=== PATIENT | female | born 1945 | race Caucasian/White ===

== ENCOUNTER 2018-02-02 14:05 | Inpatient (IN) | payer MEDICARE, OTHER ==
[~2018-02-02] VITALS: Ht 160 cm; Wt 58.6 kg
[~2018-02-02 14:05] MED LIST: ALPR.5 PO; ASPI81CH PO; ASPI81EC PO; Antivert12.5 MG; CEPH500 PO; CODACE30 PO; ELIQUIS5 MG PO; FURO20 PO; GABA400 PO; HYDACE5 PO; HYDR-86 PO; HYDR1TAB94 PO; IBUP800 PO; LASIX; LEVOTHYROXINE PO; LISI20 PO; MECL12.5 PO; MECL25 PO; METO25ER PO; Norco 5-325 Ta1 EACH PO; OMEP20ER PO; PROP10 PO; SIMV20 PO; TRIM250 PO; WARF5 PO; Zofran4 MG PO
[2018-02-02 14:58] LABS: BASOPHILS ABSOLUTE AUTO 0.02 K/mm3 (0.00-0.23); BASOPHILS PERCENT AUTO 0 % (0-2); EOSINOPHILS ABSOLUTE AUTO 0.17 K/mm3 (0.00-0.68); EOSINOPHILS PERCENT AUTO 3 % (0-6); Hematocrit 42.9 % (33.0-51.0); Hemoglobin 13.9 g/dL (11.5-16.0); IMMATURE GRAN ABSOLUTE AUTO 0.04 K/mm3 (0.00-0.10); IMMATURE GRAN PERCENT AUTO 1 % (0-1); LYMPHOCYTES ABSOLUTE AUTO 1.11 K/mm3 (0.84-5.20); LYMPHOCYTES PERCENT AUTO 17 % (21-46); MONOCYTES ABSOLUTE AUTO 0.93 K/mm3 (0.16-1.47); MONOCYTES PERCENT AUTO 14 % (4-13); Mean Corpuscular HGB 35.4 pg (26.0-34.0); Mean Corpuscular HGB Conc 32.4 g/dL (31.5-36.5); Mean Corpuscular Volume 109 fL (80-100); Mean Platelet Volume 10.5 fL (9.1-12.4); NEUTROPHILS ABSOLUTE AUTO 4.32 K/mm3 (1.96-9.15); NEUTROPHILS PERCENT AUTO 66 % (41-73); Platelet Count 314 K/mm3 (150-400); RDW Coefficient Variation 17.6 % (11.7-14.2); RDW Standard Deviation 71.1 fL (35.1-46.3); Red Blood Cell Count 3.93 M/mm3 (3.80-5.20); White Blood Cell Count 6.59 K/mm3 (4.00-11.30)
[2018-02-02 15:00] LABS: Chloride (POC) 112 mmol/L (98-108); Creatinine (POC) 0.5 mg/dL (0.6-1.0); Glucose (ISTAT POC) 79 mg/dL (70-99); Hemoglobin (POC) 15.3 g/dL (12.0-16.0); Potassium (POC) 3.4 mmol/L (3.5-5.5); Sodium (POC) 146 mmol/L (135-148); Total CO2 (POC) 23 mmol/L (21-32)
[2018-02-02 15:25] LABS: Alanine Aminotransfer (ALT/SGP 19 U/L (12-78); Albumin, Blood 2.6 g/dL (3.4-5.0); Albumin/Globulin Ratio 0.6 (0.8-1.8); Alk Phos 52 U/L (50-136); Anion Gap 13 mmol/L (6-16); Aspartate Aminotrans (AST/SGOT 27 U/L (12-37); Blood Urea Nitrogen 27 mg/dL (8-24); Bun/Creatinine Ratio 48.6 (12.0-20.0); CO2, Blood 20 mmol/L (21-32); CPK Creatine Kinase 89 U/L (26-193); Calcium, Blood 9.1 mg/dL (8.5-10.1); Chloride, Blood 112 mmol/L (98-108); Creatine Kinase MB 1.8 ng/mL (0.0-3.6); Creatinine, Blood 0.56 mg/dL (0.40-1.00); Ethanol (Alcohol), Blood, Med <3 mg/dL; Globulin, Blood 4.3 g/dL (2.2-4.0); Glomerular Filtration Rate >60 (60-); Glucose, Blood 72 mg/dL (70-99); Magnesium, Blood 2.2 mg/dL (1.6-2.4); Potassium, Blood 3.5 mmol/L (3.5-5.5); Sodium, Blood 145 mmol/L (136-145); Total Protein, Blood 6.9 g/dL (6.4-8.2)
[2018-02-02 15:27] LABS: Prothrombin Time Results 10.4 Sec (9.7-11.5)
[2018-02-02 16:16] LABS: Troponin I <0.015 ng/mL (0.000-0.040)
[2018-02-03 04:09] LABS: Hematocrit 36.3 % (33.0-51.0); Hemoglobin 12.2 g/dL (11.5-16.0); Mean Corpuscular HGB 35.7 pg (26.0-34.0); Mean Corpuscular HGB Conc 33.6 g/dL (31.5-36.5); Mean Corpuscular Volume 106 fL (80-100); Mean Platelet Volume 10.4 fL (9.1-12.4); Platelet Count 276 K/mm3 (150-400); RDW Coefficient Variation 17.2 % (11.7-14.2); RDW Standard Deviation 67.4 fL (35.1-46.3); Red Blood Cell Count 3.42 M/mm3 (3.80-5.20); White Blood Cell Count 5.63 K/mm3 (4.00-11.30)
[2018-02-03 04:34] LABS: Anion Gap 10 mmol/L (6-16); Blood Urea Nitrogen 21 mg/dL (8-24); Bun/Creatinine Ratio 34.1 (12.0-20.0); CO2, Blood 24 mmol/L (21-32); Calcium, Blood 8.4 mg/dL (8.5-10.1); Chloride, Blood 107 mmol/L (98-108); Creatinine, Blood 0.62 mg/dL (0.40-1.00); Glomerular Filtration Rate >60 (60-); Glucose, Blood 86 mg/dL (70-99); Potassium, Blood 2.6 mmol/L (3.5-5.5); Sodium, Blood 141 mmol/L (136-145)
[2018-02-03 16:17] LABS: Source, Urine Clean Catch
[2018-02-03 16:28] LABS: Bilirubin, Urine Neg (Neg); Blood, Urine 1+ (Neg); Glucose Qualitative, Urine Neg (Neg); Ketones, Urine 1+ (Neg); Leukocyte Esterase, Urine 3+ (Neg); Nitrite, Urine Pos (Neg); Protein, Urine 1+ (Neg); Urobilinogen, Urine 2+ (Normal)
[2018-02-03 16:51] LABS: Appearance, Urine Hazy (Clear); Color, Urine Yellow (P-Yellow)
[2018-02-03 16:52] LABS: Bacteria Many /hpf; Squamous Epithelial Cells Few /hpf (Few); White Blood Cells, Urine 25-50 /hpf (0-5)
[2018-02-04 06:25] LABS: Albumin, Blood 1.9 g/dL (3.4-5.0); Anion Gap 6 mmol/L (6-16); Blood Urea Nitrogen 19 mg/dL (8-24); Bun/Creatinine Ratio 27.3 (12.0-20.0); CO2, Blood 23 mmol/L (21-32); Calcium, Blood 8.2 mg/dL (8.5-10.1); Chloride, Blood 112 mmol/L (98-108); Glomerular Filtration Rate >60 (60-); Glucose, Blood 86 mg/dL (70-99); Magnesium, Blood 1.8 mg/dL (1.6-2.4); Phosphorus, Blood 3.3 mg/dL (2.5-4.9); Sodium, Blood 141 mmol/L (136-145)
[2018-02-05 04:30] LABS: BASOPHILS ABSOLUTE AUTO 0.01 K/mm3 (0.00-0.23); BASOPHILS PERCENT AUTO 0 % (0-2); EOSINOPHILS ABSOLUTE AUTO 0.06 K/mm3 (0.00-0.68); EOSINOPHILS PERCENT AUTO 1 % (0-6); Hematocrit 32.6 % (33.0-51.0); Hemoglobin 10.8 g/dL (11.5-16.0); IMMATURE GRAN ABSOLUTE AUTO 0.05 K/mm3 (0.00-0.10); IMMATURE GRAN PERCENT AUTO 1 % (0-1); LYMPHOCYTES ABSOLUTE AUTO 0.72 K/mm3 (0.84-5.20); LYMPHOCYTES PERCENT AUTO 9 % (21-46); MONOCYTES ABSOLUTE AUTO 0.93 K/mm3 (0.16-1.47); MONOCYTES PERCENT AUTO 12 % (4-13); Mean Corpuscular HGB 35.9 pg (26.0-34.0); Mean Corpuscular HGB Conc 33.1 g/dL (31.5-36.5); Mean Corpuscular Volume 108 fL (80-100); Mean Platelet Volume 10.1 fL (9.1-12.4); NEUTROPHILS ABSOLUTE AUTO 6.05 K/mm3 (1.96-9.15); NEUTROPHILS PERCENT AUTO 77 % (41-73); Platelet Count 244 K/mm3 (150-400); RDW Coefficient Variation 17.2 % (11.7-14.2); RDW Standard Deviation 69.3 fL (35.1-46.3); Red Blood Cell Count 3.01 M/mm3 (3.80-5.20); White Blood Cell Count 7.82 K/mm3 (4.00-11.30)
[2018-02-05 04:47] LABS: Anion Gap 8 mmol/L (6-16); Blood Urea Nitrogen 9 mg/dL (8-24); Bun/Creatinine Ratio 17.7 (12.0-20.0); CO2, Blood 24 mmol/L (21-32); Calcium, Blood 7.9 mg/dL (8.5-10.1); Chloride, Blood 109 mmol/L (98-108); Creatinine, Blood 0.51 mg/dL (0.40-1.00); Glomerular Filtration Rate >60 (60-); Glucose, Blood 129 mg/dL (70-99); Potassium, Blood 3.7 mmol/L (3.5-5.5); Sodium, Blood 141 mmol/L (136-145)
== END 2018-02-11 11:02 | DRG 483 ==
LOC: ER 14:05 → SURS 18:21 → ICUE 02-04 21:27 → SURS 02-04 22:43
PROVIDERS: Emergency Medicine; Internal Medicine; Orthopaedic Surgery
PROC: 0RRJ0J6 Replacement of Right Shoulder Joint with Synthetic Substitute, Humeral Surface, Open Approach (ICD-10-PCS; principal; 2018-02-04 14:30)
DX: M84.421A Pathological fracture, right humerus, initial encounter for fracture (principal); M84.433A Pathological fracture, right radius, initial encounter for fracture; F10.20 Alcohol dependence, uncomplicated; E86.0 Dehydration; Z86.718 Personal history of other venous thrombosis and embolism; I10 Essential (primary) hypertension; J44.9 Chronic obstructive pulmonary disease, unspecified; E87.6 Hypokalemia; M84.431A Pathological fracture, right ulna, initial encounter for fracture; R82.71 Bacteriuria; B96.20 Unspecified Escherichia coli [E. coli] as the cause of diseases classified elsewhere
CPT/HCPCS: 29125; 36415; 71045; 73030; 73070; 73110; 73200; 80047; 80048; 80053; 80069; 81001; 82550; 82553; 83735; 84443; 84484; 85014; 85025; 85027; 85610; 87077; 87086; 87186; 88305; 88311; 88341; 88342; 93005; 93010; 96365; 96375; 96376; 97110; 97116; 97162; 97166; 97530; 97535; 99285; C1713; C1751; C1776; G0008; G0480; G8978; G8979; G8987; G8988; J0171; J0330; J0690; J0696; J1650; J1885; J2001; J2405; J3010; J3411; J3475; J3480; J7030; J7042; J7050; J7120; L3917; Q0163; Q2038

== ENCOUNTER 2021-07-20 18:14 | Emergency (ER) | payer BC, OTHER ==
[~2021-07-20] VITALS: Ht 160 cm; Wt 45.4 kg
[~2021-07-20 18:14] MED LIST changes: +GABA100
[2021-07-20 20:00] LABS: BASOPHILS ABSOLUTE AUTO 0.03 K/mm3 (0.00-0.23); BASOPHILS PERCENT AUTO 0 % (0-2); EOSINOPHILS ABSOLUTE AUTO 0.13 K/mm3 (0.00-0.68); EOSINOPHILS PERCENT AUTO 2 % (0-6); Hematocrit 33.7 % (33.0-51.0); Hemoglobin 11.5 g/dL (11.5-16.0); IMMATURE GRAN ABSOLUTE AUTO 0.06 K/mm3 (0.00-0.10); IMMATURE GRAN PERCENT AUTO 1 % (0-1); LYMPHOCYTES ABSOLUTE AUTO 1.49 K/mm3 (0.84-5.20); LYMPHOCYTES PERCENT AUTO 20 % (21-46); MONOCYTES ABSOLUTE AUTO 0.41 K/mm3 (0.16-1.47); MONOCYTES PERCENT AUTO 5 % (4-13); Mean Corpuscular HGB 35.1 pg (26.0-34.0); Mean Corpuscular HGB Conc 34.1 g/dL (31.5-36.5); Mean Corpuscular Volume 103 fL (80-100); Mean Platelet Volume 9.2 fL (9.1-12.4); NEUTROPHILS ABSOLUTE AUTO 5.42 K/mm3 (1.96-9.15); NEUTROPHILS PERCENT AUTO 72 % (41-73); Platelet Count 393 K/mm3 (150-400); RDW Coefficient Variation 18.2 % (11.7-14.2); RDW Standard Deviation 67.7 fL (35.1-46.3); Red Blood Cell Count 3.28 M/mm3 (3.80-5.20); White Blood Cell Count 7.54 K/mm3 (4.00-11.30)
[2021-07-20 20:22] LABS: Anion Gap 9 mmol/L (6-16); Blood Urea Nitrogen 7 mg/dL (8-24); Bun/Creatinine Ratio 10.4 (12.0-20.0); CO2, Blood 27 mmol/L (21-32); Chloride, Blood 98 mmol/L (98-108); Creatinine, Blood 0.67 mg/dL (0.40-1.00); Glomerular Filtration Rate >60 (60-); Glucose, Blood 84 mg/dL (70-99); Potassium, Blood 2.8 mmol/L (3.5-5.5); Sodium, Blood 134 mmol/L (136-145)
[2021-07-20 23:26] LABS: SARS-Cov-2 (COVID-19) PCR, MMC NEGATIVE (NEGATIVE)
== END 2021-07-20 23:31 ==
LOC: ER 18:14
PROVIDERS: Emergency Medicine
DX: K12.2 Cellulitis and abscess of mouth (principal); M27.2 Inflammatory conditions of jaws; Z88.2 Allergy status to sulfonamides; Z87.891 Personal history of nicotine dependence; Z20.822 Contact with and (suspected) exposure to COVID-19
CPT/HCPCS: 36415; 70487; 80048; 83605; 85025; 87040; 96365-59; 96367-59; 99285-25; A9270; J2543; J3370; Q9967; U0004

== ENCOUNTER 2021-09-23 11:46 | Emergency (ER) | payer MEDICARE, OTHER ==
[~2021-09-23] VITALS: Ht 157.5 cm; Wt 49.9 kg
[~2021-09-23 11:46] MED LIST changes: -GABA100; +GABA100 PO
[2021-09-23] MEDS ORDERED: OMEP20ER PO (12:01)
[2021-09-23] MEDS ORDERED: OXYC5 PO (12:01)
[2021-09-23] MEDS ORDERED: Amlodipine Bes2.5 MG PO (12:01)
[2021-09-23] MEDS ORDERED: PERIDEX15 ML MM (12:02)
[2021-09-23] MEDS ORDERED: PROC5 PO (12:02)
[2021-09-23] MEDS ORDERED: ACET500 PO (12:03)
[2021-09-23 13:24] LABS: BASOPHILS ABSOLUTE AUTO 0.04 K/mm3 (0.00-0.23); BASOPHILS PERCENT AUTO 1 % (0-2); EOSINOPHILS ABSOLUTE AUTO 0.07 K/mm3 (0.00-0.68); EOSINOPHILS PERCENT AUTO 1 % (0-6); Hematocrit 31.9 % (33.0-51.0); Hemoglobin 9.7 g/dL (11.5-16.0); IMMATURE GRAN ABSOLUTE AUTO 0.07 K/mm3 (0.00-0.10); IMMATURE GRAN PERCENT AUTO 1 % (0-1); LYMPHOCYTES ABSOLUTE AUTO 1.58 K/mm3 (0.84-5.20); LYMPHOCYTES PERCENT AUTO 19 % (21-46); MONOCYTES ABSOLUTE AUTO 1.09 K/mm3 (0.16-1.47); MONOCYTES PERCENT AUTO 13 % (4-13); Mean Corpuscular HGB 31.3 pg (26.0-34.0); Mean Corpuscular HGB Conc 30.4 g/dL (31.5-36.5); Mean Corpuscular Volume 103 fL (80-100); Mean Platelet Volume 10.1 fL (9.1-12.4); NEUTROPHILS ABSOLUTE AUTO 5.41 K/mm3 (1.96-9.15); NEUTROPHILS PERCENT AUTO 66 % (41-73); Platelet Count 567 K/mm3 (150-400); RDW Coefficient Variation 20.9 % (11.7-14.2); RDW Standard Deviation 79.6 fL (35.1-46.3); White Blood Cell Count 8.26 K/mm3 (4.00-11.30)
[2021-09-23 13:41] LABS: International Normalized Ratio 0.96; Prothrombin Time Results 10.1 Sec (9.7-11.5)
[2021-09-23 13:46] LABS: Alanine Aminotransfer (ALT/SGP 19 U/L (12-78); Albumin, Blood 2.4 g/dL (3.4-5.0); Albumin/Globulin Ratio 0.5 (0.8-1.8); Alk Phos 79 U/L (50-136); Anion Gap 5 mmol/L (6-16); Aspartate Aminotrans (AST/SGOT 23 U/L (12-37); Bilirubin, Direct 0.1 mg/dL (0.0-0.3); Bilirubin, Indirect 0.2 mg/dL (0.1-0.7); Bilirubin, Total 0.3 mg/dL (0.1-1.0); Blood Urea Nitrogen 9 mg/dL (8-24); Bun/Creatinine Ratio 20.2 (12.0-20.0); CO2, Blood 33 mmol/L (21-32); Calcium, Blood 9.7 mg/dL (8.5-10.1); Chloride, Blood 104 mmol/L (98-108); Creatinine, Blood 0.45 mg/dL (0.40-1.00); Globulin, Blood 4.7 g/dL (2.2-4.0); Glomerular Filtration Rate >60 (60-); Glucose, Blood 115 mg/dL (70-99); Magnesium, Blood 2.5 mg/dL (1.6-2.4); Potassium, Blood 3.3 mmol/L (3.5-5.5); Sodium, Blood 142 mmol/L (136-145); Total Protein, Blood 7.1 g/dL (6.4-8.2)
== END 2021-09-23 17:01 | disposition home or self-care (01) ==
LOC: ER 11:46
PROVIDERS: Student in an Organized Health Care Education/Training Program
DX: K94.23 Gastrostomy malfunction (principal); E87.6 Hypokalemia; R10.12 Left upper quadrant pain; Z88.2 Allergy status to sulfonamides; Z79.899 Other long term (current) drug therapy
CPT/HCPCS: 36415; 74177; 80048; 80076; 83690; 83735; 85025; 85610; 85730; 96374; 96375; 99284-25; A9270; J2270; J2405; Q9967

== ENCOUNTER 2021-12-06 12:47 | Emergency (ER) | payer MEDICARE, OTHER ==
[~2021-12-06] VITALS: Ht 157.5 cm; Wt 36.7 kg
[~2021-12-06 12:47] MED LIST changes: +ACET500 PO; +Amlodipine Bes2.5 MG PO; +OXYC5 PO; +PERIDEX15 ML MM; +PROC5 PO
[2021-12-06 16:50] LABS: BASOPHILS ABSOLUTE AUTO 0.04 K/mm3 (0.00-0.23); BASOPHILS PERCENT AUTO 1 % (0-2); EOSINOPHILS ABSOLUTE AUTO 0.16 K/mm3 (0.00-0.68); EOSINOPHILS PERCENT AUTO 3 % (0-6); Hematocrit 33.1 % (33.0-51.0); Hemoglobin 10.1 g/dL (11.5-16.0); IMMATURE GRAN ABSOLUTE AUTO 0.01 K/mm3 (0.00-0.10); IMMATURE GRAN PERCENT AUTO 0 % (0-1); LYMPHOCYTES ABSOLUTE AUTO 1.62 K/mm3 (0.84-5.20); LYMPHOCYTES PERCENT AUTO 29 % (21-46); MONOCYTES ABSOLUTE AUTO 0.57 K/mm3 (0.16-1.47); MONOCYTES PERCENT AUTO 10 % (4-13); Mean Corpuscular HGB 26.1 pg (26.0-34.0); Mean Corpuscular HGB Conc 30.5 g/dL (31.5-36.5); Mean Corpuscular Volume 86 fL (80-100); NEUTROPHILS ABSOLUTE AUTO 3.28 K/mm3 (1.96-9.15); NEUTROPHILS PERCENT AUTO 58 % (41-73); Platelet Count 340 K/mm3 (150-400); RDW Coefficient Variation 17.1 % (11.7-14.2); RDW Standard Deviation 53.1 fL (35.1-46.3); Red Blood Cell Count 3.87 M/mm3 (3.80-5.20); White Blood Cell Count 5.68 K/mm3 (4.00-11.30)
[2021-12-06 17:22] LABS: Alanine Aminotransfer (ALT/SGP 13 U/L (12-78); Albumin, Blood 3.1 g/dL (3.4-5.0); Albumin/Globulin Ratio 0.7 (0.8-1.8); Alk Phos 67 U/L (50-136); Anion Gap 4 mmol/L (6-16); Aspartate Aminotrans (AST/SGOT 14 U/L (12-37); Bilirubin, Total 0.3 mg/dL (0.1-1.0); Blood Urea Nitrogen 10 mg/dL (8-24); Bun/Creatinine Ratio 21.5 (12.0-20.0); CO2, Blood 28 mmol/L (21-32); Chloride, Blood 101 mmol/L (98-108); Creatinine, Blood 0.47 mg/dL (0.40-1.00); Globulin, Blood 4.2 g/dL (2.2-4.0); Glomerular Filtration Rate >60 (60-); Glucose, Blood 95 mg/dL (70-99); Sodium, Blood 133 mmol/L (136-145); Total Protein, Blood 7.3 g/dL (6.4-8.2)
[2021-12-06] MEDS ORDERED: AMOCLA875 PO (17:32)
== END 2021-12-06 18:56 | disposition home or self-care (01) ==
LOC: ER 12:47
PROVIDERS: Student in an Organized Health Care Education/Training Program
DX: T85.528A Displacement of other gastrointestinal prosthetic devices, implants and grafts, initial encounter (principal); Z88.2 Allergy status to sulfonamides
CPT/HCPCS: 36415; 43762; 74177; 80053; 85025; 99284-25; Q9967

== ENCOUNTER 2022-03-08 17:11 | Emergency (ER) | payer MEDICARE, OTHER ==
[~2022-03-08] VITALS: Ht 157.5 cm; Wt 34.9 kg
[~2022-03-08 17:11] MED LIST changes: +AMOCLA875 PO
== END 2022-03-08 19:23 | disposition home or self-care (01) ==
LOC: ER 17:11
DX: Z43.1 Encounter for attention to gastrostomy (principal); Z79.899 Other long term (current) drug therapy; Z88.2 Allergy status to sulfonamides; Z87.891 Personal history of nicotine dependence
CPT/HCPCS: 49465; Q9963

== ENCOUNTER 2022-08-17 10:29 | Emergency (ER) | payer MEDICARE, OTHER ==
[~2022-08-17] VITALS: Ht 157.5 cm; Wt 36.3 kg
[2022-08-17 12:17] LABS: BASOPHILS ABSOLUTE AUTO 0.05 K/mm3 (0.00-0.23); BASOPHILS PERCENT AUTO 1 % (0-2); EOSINOPHILS PERCENT AUTO 3 % (0-6); Hematocrit 37.5 % (33.0-51.0); Hemoglobin 11.9 g/dL (11.5-16.0); IMMATURE GRAN ABSOLUTE AUTO 0.02 K/mm3 (0.00-0.10); IMMATURE GRAN PERCENT AUTO 0 % (0-1); LYMPHOCYTES ABSOLUTE AUTO 1.77 K/mm3 (0.84-5.20); LYMPHOCYTES PERCENT AUTO 25 % (21-46); MONOCYTES PERCENT AUTO 10 % (4-13); Mean Corpuscular HGB 29.7 pg (26.0-34.0); Mean Corpuscular HGB Conc 31.7 g/dL (31.5-36.5); Mean Corpuscular Volume 94 fL (80-100); Mean Platelet Volume 10.4 fL (9.1-12.4); NEUTROPHILS ABSOLUTE AUTO 4.29 K/mm3 (1.96-9.15); NEUTROPHILS PERCENT AUTO 61 % (41-73); Platelet Count 297 K/mm3 (150-400); RDW Coefficient Variation 14.9 % (11.7-14.2); RDW Standard Deviation 51.5 fL (35.1-46.3); Red Blood Cell Count 4.01 M/mm3 (3.80-5.20); White Blood Cell Count 7.03 K/mm3 (4.00-11.30)
[2022-08-17 12:37] LABS: Albumin, Blood 3.3 g/dL (3.4-5.0); Albumin/Globulin Ratio 0.8 (0.8-1.8); Bilirubin, Total 0.2 mg/dL (0.1-1.0); Bun/Creatinine Ratio 52.1 (12.0-20.0); Calcium, Blood 9.4 mg/dL (8.5-10.1); Creatinine, Blood 0.4 mg/dL (0.40-1.00); Potassium, Blood 4.3 mmol/L (3.5-5.5); Total Protein, Blood 7.3 g/dL (6.4-8.2)
== END 2022-08-17 14:30 | disposition home or self-care (01) ==
LOC: ER 10:29
PROVIDERS: Emergency Medicine
DX: C01 Malignant neoplasm of base of tongue (principal); Z88.2 Allergy status to sulfonamides; Z87.891 Personal history of nicotine dependence
CPT/HCPCS: 36415; 70491; 80053; 85025; 99283-25; Q9967

== ENCOUNTER 2022-11-02 11:57 | Emergency (ER) | payer MEDICARE, OTHER ==
[~2022-11-02] VITALS: Ht 157.5 cm; Wt 42.6 kg
== END 2022-11-02 17:16 | disposition home or self-care (01) ==
LOC: ER 11:57
DX: K94.23 Gastrostomy malfunction (principal); Z88.2 Allergy status to sulfonamides; Z79.899 Other long term (current) drug therapy; Z87.891 Personal history of nicotine dependence
CPT/HCPCS: 99283-25

== ENCOUNTER 2022-11-03 05:22 | Emergency (ER) | payer MEDICARE, OTHER ==
[~2022-11-03] VITALS: Ht 152.4 cm; Wt 52.2 kg
== END 2022-11-03 07:58 | disposition home or self-care (01) ==
LOC: ER 05:22
DX: Z43.1 Encounter for attention to gastrostomy (principal); Z87.891 Personal history of nicotine dependence; Z79.899 Other long term (current) drug therapy
CPT/HCPCS: 49465; J1170

== ENCOUNTER 2022-11-05 11:02 | Emergency (ER) | payer MEDICARE, OTHER ==
[~2022-11-05] VITALS: Ht 165.1 cm; Wt 52.2 kg
[2022-11-05 12:38] LABS: BASOPHILS ABSOLUTE AUTO 0.02 K/mm3 (0.00-0.23); BASOPHILS PERCENT AUTO 0 % (0-2); EOSINOPHILS ABSOLUTE AUTO 0.12 K/mm3 (0.00-0.68); EOSINOPHILS PERCENT AUTO 1 % (0-6); Hematocrit 42.1 % (33.0-51.0); Hemoglobin 13.5 g/dL (11.5-16.0); IMMATURE GRAN ABSOLUTE AUTO 0.03 K/mm3 (0.00-0.10); IMMATURE GRAN PERCENT AUTO 0 % (0-1); LYMPHOCYTES ABSOLUTE AUTO 1.18 K/mm3 (0.84-5.20); LYMPHOCYTES PERCENT AUTO 13 % (21-46); MONOCYTES ABSOLUTE AUTO 0.88 K/mm3 (0.16-1.47); MONOCYTES PERCENT AUTO 10 % (4-13); Mean Corpuscular HGB 30.3 pg (26.0-34.0); Mean Corpuscular HGB Conc 32.1 g/dL (31.5-36.5); Mean Corpuscular Volume 95 fL (80-100); Mean Platelet Volume 9.9 fL (9.1-12.4); NEUTROPHILS ABSOLUTE AUTO 6.82 K/mm3 (1.96-9.15); NEUTROPHILS PERCENT AUTO 76 % (41-73); Platelet Count 402 K/mm3 (150-400); RDW Coefficient Variation 14.8 % (11.7-14.2); RDW Standard Deviation 51.2 fL (35.1-46.3); Red Blood Cell Count 4.45 M/mm3 (3.80-5.20); White Blood Cell Count 9.05 K/mm3 (4.00-11.30)
[2022-11-05 13:12] LABS: Albumin, Blood 3.3 g/dL (3.4-5.0); Albumin/Globulin Ratio 0.8 (0.8-1.8); Bilirubin, Total 0.4 mg/dL (0.1-1.0); Bun/Creatinine Ratio 39.8 (12.0-20.0); Calcium, Blood 9.6 mg/dL (8.5-10.1); Creatinine, Blood 0.4 mg/dL (0.40-1.00); Globulin, Blood 4.4 g/dL (2.2-4.0); Potassium, Blood 4.1 mmol/L (3.5-5.5); Total Protein, Blood 7.7 g/dL (6.4-8.2)
[2022-11-05 14:12] LABS: Influenza A, PCR NEGATIVE (NEGATIVE); Influenza B, PCR NEGATIVE (NEGATIVE); Resp Syncytial Virus, PCR NEGATIVE (NEGATIVE); SARS-Cov-2 (COVID-19) PCR, MMC NEGATIVE (NEGATIVE)
== END 2022-11-05 15:56 | disposition home or self-care (01) ==
LOC: ER 11:02
PROVIDERS: Student in an Organized Health Care Education/Training Program
DX: C10.9 Malignant neoplasm of oropharynx, unspecified (principal); Z88.2 Allergy status to sulfonamides; Z79.899 Other long term (current) drug therapy
CPT/HCPCS: 0241U; 36415; 70491; 71045; 80053; 84145; 85025; Q9967

== ENCOUNTER 2022-11-24 18:01 | Inpatient (IN) | payer MEDICARE, OTHER ==
[~2022-11-24] VITALS: Ht 157.5 cm; Wt 42.1 kg
[2022-11-24 19:01] LABS: BASOPHILS ABSOLUTE AUTO 0.04 K/mm3 (0.00-0.23); BASOPHILS PERCENT AUTO 0 % (0-2); EOSINOPHILS ABSOLUTE AUTO 0.36 K/mm3 (0.00-0.68); EOSINOPHILS PERCENT AUTO 4 % (0-6); Hematocrit 39.5 % (33.0-51.0); Hemoglobin 12.4 g/dL (11.5-16.0); IMMATURE GRAN ABSOLUTE AUTO 0.03 K/mm3 (0.00-0.10); IMMATURE GRAN PERCENT AUTO 0 % (0-1); LYMPHOCYTES PERCENT AUTO 18 % (21-46); MONOCYTES ABSOLUTE AUTO 0.89 K/mm3 (0.16-1.47); MONOCYTES PERCENT AUTO 9 % (4-13); Mean Corpuscular HGB 30.4 pg (26.0-34.0); Mean Corpuscular HGB Conc 31.4 g/dL (31.5-36.5); Mean Corpuscular Volume 97 fL (80-100); NEUTROPHILS ABSOLUTE AUTO 6.56 K/mm3 (1.96-9.15); NEUTROPHILS PERCENT AUTO 69 % (41-73); Platelet Count 428 K/mm3 (150-400); RDW Coefficient Variation 15.9 % (11.7-14.2); Red Blood Cell Count 4.08 M/mm3 (3.80-5.20); White Blood Cell Count 9.58 K/mm3 (4.00-11.30)
[2022-11-24 19:18] LABS: Albumin, Blood 3.1 g/dL (3.4-5.0); Albumin/Globulin Ratio 0.7 (0.8-1.8); Bilirubin, Total 0.2 mg/dL (0.1-1.0); Bun/Creatinine Ratio 59.6 (12.0-20.0); Calcium, Blood 9.8 mg/dL (8.5-10.1); Creatinine, Blood 0.47 mg/dL (0.40-1.00); Globulin, Blood 4.3 g/dL (2.2-4.0); Potassium, Blood 4.6 mmol/L (3.5-5.5); Total Protein, Blood 7.4 g/dL (6.4-8.2)
--- NOTE | 2022-11-24 20:28 | NUR ---
11/24/222027 Marcus Bolden LIDOCAINE 1% WAS USED FOR LOCAL CAME IN TRACH KIT. 10CC USED. NO ANTIBIOTICS ORDERED PER DR VILLAREAL. EMERGENT PROCEDURE DONE IMPLIED EMERGENT CONSENT DONE WITH PT. SEE DR VILLAREAL AND DR ASENCIO'S NOTES. PT TRANSFERED TO ICU WITH NO COMPLICATIONS.
--- NOTE | 2022-11-24 21:00 | NUR ---
PT ARRIVES TO ICU FROM OR POST EMERGENT TRACH. SHE IS ESCORTED BY ROCK LOADER, RT, SURGEON, AND ANESTHESIOLOGIST. BVM ASSISTED RESPIRATIONS PER RT. VENTILATOR AT BEDSIDE ON ARRIVAL AND SET UP BY RT. PT NOTED AWAKENING AND REACHING FOR THROAT/FACE, ANESTHESIOLOGIST ADMINSTERED PROPOFOL IV. PER DR VILLAREAL, PLAN WAS TO HAVE PT ON VENTILATOR AND SEDATED OVERNOC, DR MEADOWS WAS CONSULTED AND ON UNIT AT TIME OF PT ARRIVAL, PROPOFOL WAS OBTAINED FROM [facility] ON OVERRIDE SECONDARY TO PT CONTINUING TO AWAKEN, SHE WAS SITTING UP IN BED, COMPLAINING THAT VENTILATOR WAS UNCOMFORTABLE, REACHING FOR NEW TRACH, AND PRESSURES WERE NOTED HYPERTENSIVE. DR MEADOWS ARRIVED TO BEDSIDE AND VERBAL ORDER WAS OBTAINED TO ATTEMPT TRANSITION TO TRACH COLLAR WITH HUMIDIFIED OXYGEN, RT TRANSITIONING PT, PLAN TO OBTAIN ABG ON TRACH COLLAR AND PHONE RESULTS TO DR MEADOWS. PEG TUBE IN NOTED, DRESSING IS SOILED WITH DRIED BLOOD THAT APPEARS TO BE FROM FISTULA PRESENT ON CHIN/ORAL BLEEDING PRIOR TO ARRIVAL TO ER, SKIN IMMEDIATELY SURROUNDING PEG IS INTACT WITHOUT IRRITATION, SLIGHT RASHE IS NOTED MEDIAL TO PEG TUBE AND APPEARS TO BE TAPE IRRITATION, NEW DRESSING PLACED, PT TOLERATED WELL. WILL PLAN TO OBTAIN PHOTOS OF SUBMANDIBULAR ECCHYMOSIS AND FISTULA DRAINAGE. WILL PROVIDE TRACH CARE PRN THIS SHIFT.
[2022-11-24] MEDS ORDERED: CODACE30 PO (21:52)
[2022-11-24 22:29] LABS: PCO2 Arterial 35.6 mmHg (35-45); PO2 Arterial 117 mmHg (80-100); pH Blood Arterial 7.52 (7.35-7.45)
[2022-11-25 03:50] LABS: BASOPHILS ABSOLUTE AUTO 0.02 K/mm3 (0.00-0.23); BASOPHILS PERCENT AUTO 0 % (0-2); EOSINOPHILS ABSOLUTE AUTO 0.07 K/mm3 (0.00-0.68); EOSINOPHILS PERCENT AUTO 1 % (0-6); Hematocrit 31.2 % (33.0-51.0); IMMATURE GRAN ABSOLUTE AUTO 0.02 K/mm3 (0.00-0.10); IMMATURE GRAN PERCENT AUTO 0 % (0-1); LYMPHOCYTES ABSOLUTE AUTO 1.03 K/mm3 (0.84-5.20); LYMPHOCYTES PERCENT AUTO 12 % (21-46); MONOCYTES ABSOLUTE AUTO 0.78 K/mm3 (0.16-1.47); MONOCYTES PERCENT AUTO 9 % (4-13); Mean Corpuscular HGB 30.6 pg (26.0-34.0); Mean Corpuscular HGB Conc 32.1 g/dL (31.5-36.5); Mean Corpuscular Volume 95 fL (80-100); Mean Platelet Volume 9.8 fL (9.1-12.4); NEUTROPHILS ABSOLUTE AUTO 6.84 K/mm3 (1.96-9.15); NEUTROPHILS PERCENT AUTO 78 % (41-73); Platelet Count 306 K/mm3 (150-400); RDW Coefficient Variation 15.5 % (11.7-14.2); Red Blood Cell Count 3.27 M/mm3 (3.80-5.20); White Blood Cell Count 8.76 K/mm3 (4.00-11.30)
[2022-11-25 06:34] LABS: Bun/Creatinine Ratio 37.9 (12.0-20.0); Creatinine, Blood 0.4 mg/dL (0.40-1.00)
--- NOTE | 2022-11-25 06:50 | NUR ---
PT NEW ADMIT THIS SHIFT POST EMERGENCY TRACH. SHE C/O HIGH PAIN TO TRACH SITE, LEFT JAW AND MOUTH UP TO TOP OF HEAD, THE JAW/HEAD PAIN IS THROBBING IN NATURE, THE TRACH PAIN IS SHARP/SORE. SHE CONTINUED TO HAVE SMALL AMOUNTS OF BLOODY DRAINAGE FROM HER SUBMANDIBULAR FISTULA, OF NOTE, WHEN PT DOES HER OWN ORAL CARE WITH SPONGE SWAB, SHE HAS INCREASED MUCUS DRAINAGE FROM SUBMANDIBULAR FISTULA. PT WRITES ON PAPER TO COMMUNICATE NEEDS. INNER TRACH CANNULA CHANGED BY RT THIS SHIFT DUE TO CLOT FORMATION IN PREVIOUS INNER CANNULA, PT TOLERATED WELL. SHE WAS ON VENTILATOR FOR A VERY SHORT DURATION DR MEADOWS WAS ON THE UNIT AT THE TIME OF HER ARRIVAL AND ON HIS ARRIVAL TO HER ROOM HE ORDERED TRANSITION TO TRACH COLLAR AND FOLLOW UP ABG, FOLLOW UP ABG RESULTS WERE PHONED TO DR MEADOWS AND ORDERS WERE OBTAINED TO TRANSFER TO PCU SATS HAVE MAINTAINED WELL WITH OXYGEN VIA TRACH COLLAR AT 26% MOST OF THIS SHIFT, SHE DID HAVE SATS DECREASE TO MID 80S FOLLOWING ATIVAN 0.5 MG IV THIS AM AND OXYGEN WAS INCREASED TO 35% VIA TRACH COLLAR AND RT NOTIFIED. PRESSURES HAVE NOT REQUIRED PRN HYDRALAZINE, SHE CONTINUES IN SINUS RHYTHM WHICH INCREASES TO SINUS TACH LOW 100-110S WITH THE INCREASE IN ANXIETY THIS AM, SHE DOES HAVE INTERMITTENT PVCS.
--- NOTE | 2022-11-25 13:32 | NUR ---
GIOVANA WAS UP TO THE CHAIR BRIEFLY EARLIER IN THE SHIFT, SHE WAS BECOMING MORE TACHYPNEIC AND AGITATED. SHE WAS GIVEN A DOSE OF ATIVAN PER ORDER OF DR. MCKEON WITH GOOD RELIEF. DID COME TO SEE THE PATIENT, NO ORDERS FROM HER. UPDATE GIVEN TO PALLIATIVE CARE NURSE, AWAITING SON'S ARRIVAL TO SPEAK WITH HIM.
--- NOTE | 2022-11-25 17:07 | NUR ---
GIOVANA HAD REFUSED HER LUNCH TIME FEEDING, ACCEPTED HER 1500 FEEDING AT 1600. SHE ASSISTED IN THE FEEDING, THE MIXING OF THE WATER WITH THE FORMULA AND THE POURING THE FEEDING INTO HER PEG TUBE. SHE DID WELL, ACTED A BIT FRUSTRATED THAT IT WAS SLOW GOING. ASKED HER IF SHE WAS FEELING OFF TODAY. SHE AGREED. HER ORAL SECRETIONS HAVE BEEN INTERMITTENTLY CLEAR AND BLOOD TINGED. HER CHIN WOUND HAS SLOWED IN IT'S BLEEDING SINCE THIS AM. THE DRESSING HAS REMAINED IN PLACED FOR A COUPLE OF HOURS. SHE WAS ABLE TO SLEEP SOME THIS AFTERNOON AFTER HER DOSE OF ATIVAN. WHEN HER PLETH READS HER SATS REMAIN HI 90S. SHE HASN'T COMPLAINED OF INABILITY TO BREATHE SINCE THE ONE INCIDENT THIS AM WHEN SHE GOT UP IN THE CHAIR. SHE CONTINUES WITH THE PUREWICK WITH GOOD OUTPUT. IV IN RFA CONTIUES AT 75ML/HR. CONTINUE TO AWAIT HER SON TO SPEAK WITH PALLIATIVE CARE.
--- NOTE | 2022-11-25 17:57 | NUR ---
MEDICATED FOR PAIN, PT JUST GRIMACES, NOT OVERLY ENGAGING. SON IN THE ROOM, HE VISITED WITH CARLEEN FROM PALLIATIVE CARE. PT SITTING UP ON THE EDGE OF THE BED, ATTEMPT TO SUCTION TRACH WITHOUT RETURN. SHE HAS GOOD COUGH, TRACH COLLAR REMAINS IN PLACE.
--- NOTE | 2022-11-25 18:13 | NUR ---
Met with pt son this evening ro review her care. Pt sleeping through most of visit. Review with son plan of care and physician and nursing assessment. Advised gave pt and nursing some communication boards for her to exress her needs.jed nunezost of assessment this point will be not verbal assessment. Pt hear rate up this evening and slighly more grimacing and neck splinting. Nursing revieed with son pt prognosis and lack of ability to do anymore intervention. Son looks fatigued and stressed. Discussed plan to see what doctor more has to say about ability for nay paliative treatment. review with son the risks of treatment may be to great. We discussed exptrodinary treatment. power of commercial litigation attorney and decision making. Discussed how full code may not be the best and kindest treatment plan for her or him or their family. the son feels cpr or ventillation is not a good plan. We reviewed that she would not tolerate that level of care. We reviewed that she may not be able to make decisions much longer due to her pain and frailty. We settled on if any turn or decline tonight they will advise him right away and chnge her to DNR and review care to reduce suffering. He was very amendable to that plan. advised him to speak with his family and support system so he does not bear the burden alone updated nursing and charge nurse of plan. Goal is hospice care for this patient. Her secretion seem to be increasing, besides the bleeding apprears more drooling. kps score is 30% Gave son our direct contact number and reviewed managment of her home and fiances and planning for her care. Pt may not be good canidate for out patient hospice unless place in facility.
--- NOTE | 2022-11-25 19:20 | NUR ---
ASSUMED CARE OF PT, BEDSIDE REPORT RECEIVED. SON IS AT BEDSIDE, PT APPEARS TO BE SLEEPING, RESP EVEN AND REGULAR, EXPRESSION RELAXED, SATS NOTED MAINTAINING WITH TRACH COLLAR AT 35% HIGH 90S TO 100% AT TIMES. NO VISIBLE INCREASED WORK OF BREATHING NOTED AT THIS TIME. PLAN TO MAINTAIN PAIN CONTROL PER PALLIATIVE CARE RN'S INSTRUCTIONS THIS SHIFT. WILL FURTHER ASSESS.
[2022-11-26 04:18] LABS: Bun/Creatinine Ratio 30.8 (12.0-20.0); Creatinine, Blood 0.29 mg/dL (0.40-1.00); Potassium, Blood 3.4 mmol/L (3.5-5.5)
[2022-11-26 06:28] LABS: BASOPHILS ABSOLUTE AUTO 0.02 K/mm3 (0.00-0.23); BASOPHILS PERCENT AUTO 0 % (0-2); EOSINOPHILS ABSOLUTE AUTO 0.05 K/mm3 (0.00-0.68); EOSINOPHILS PERCENT AUTO 0 % (0-6); Hematocrit 32.1 % (33.0-51.0); Hemoglobin 10.6 g/dL (11.5-16.0); IMMATURE GRAN ABSOLUTE AUTO 0.03 K/mm3 (0.00-0.10); IMMATURE GRAN PERCENT AUTO 0 % (0-1); LYMPHOCYTES ABSOLUTE AUTO 0.89 K/mm3 (0.84-5.20); LYMPHOCYTES PERCENT AUTO 8 % (21-46); MONOCYTES ABSOLUTE AUTO 1.05 K/mm3 (0.16-1.47); MONOCYTES PERCENT AUTO 9 % (4-13); Mean Corpuscular HGB 31.2 pg (26.0-34.0); Mean Corpuscular Volume 94 fL (80-100); Mean Platelet Volume 9.6 fL (9.1-12.4); NEUTROPHILS ABSOLUTE AUTO 9.21 K/mm3 (1.96-9.15); NEUTROPHILS PERCENT AUTO 82 % (41-73); Platelet Count 325 K/mm3 (150-400); RDW Coefficient Variation 15.4 % (11.7-14.2); White Blood Cell Count 11.25 K/mm3 (4.00-11.30)
--- NOTE | 2022-11-26 07:02 | NUR ---
PT AWAKE MOST OF THIS SHIFT, C/O HIGH PAIN, FENTANYL ADMIN INITIALLY EVERY 2 HOURS HOWEVER POST PAIN SCORES WENT FROM 8/10 TO 10/10 AND CALL WAS PLACED TO DR MEZA REGARDING PT'S WISHES FOR IMPROVED PAIN CONTROL, CLARIFIED WITH PT TO WHETHER SHE WAS ASKING FOR COMFORT CARE OR JUST IMPROVED PAIN CONTROL. SHE DOES NOT WISH TO BE COMFORT CARE BUT DOES WANT IMPROVED PAIN CONTROL, ORDERS WERE RECEIVED FOR DILAUDID IV WHICH RESULTED IN PAIN SCORE OF 6/10 WHICH PT REPORTS ACCEPTABLE PAIN. SHE CONTINUES TO MAINTAIN SATS WITH TRACH COLLAR, TOLERATED TRACH CARE WELL. FISTULAS TO SUBMANDIBULAR AREA CONTINUE TO DRAIN COPIOUS SECRETIONS VARYING FROM CLEAR THICK SPUTUM TO THICK BLOODY SPUTUM, DRESSINGS CHANGED SEVERAL TIMES THROUGHOUT SHIFT. INCREASED PVCS ARE NOTED THIS AM AND CALL WAS PLACED TO DR MEZA, ORDERS FOR MAGNESIUM LEVEL TO BE ADDED ON TO AM LABS.
--- NOTE | 2022-11-26 07:30 | NUR ---
ASSUMED CARE OF PT AT 0715 BEDSIDE REPORT RECEIVED FROM LUKAS WARREN. PT APPEARS TO BE RESTING COMFORTABLY, HAS MOD AMT OF BLOODY DRAINAIGE TO GAUZE UNDER CHIN. NO BLEEDING NOTED TO TRACH SITE. PT HAS REPORTEDLY NOT SLEPT DURING THE NIGHT AND HAS HAD ISSUES WITH PAIN CONTROL. HAS BEEN RESTING SINCE DILAUDUD GIVEN AT APPROX 0500. SON CAME TO BEDSIDE DURING THE NIGHT WHILE PT WAS ANXIOUS AND UNABLE TO SLEEP. IS SR WITH FREQUENT PVC'S. MAG 2.0, K 3.4, PHOS 2.4, KPHOS REPLACEMENT ORDERED. TRACH COLLAR AT 35% TO MAINTAIN O2 SAT > 92%. HAS PEG TUBE, HAS BOLUS FEEDINGS CURRENTLY ORDERED. PUREWICK IN PLACE. 1 PIV THAT IS PAINFUL WITH FLUSHING. REQUESTED POWEGLIDE. PT IS PCU STATUS, AWAITING BED AVAILABILITY. RN TO CONTINUE TO MONITOR.
--- NOTE | 2022-11-26 13:04 | NUR ---
pt having more secretions and swelling. Pt heart rate more labile and increased blood preassure. Pt less alert advised her we need to put her on comfort and hospice care. advised her that I called Dr lopes for his input. She nodded yes. Limited conversation with pt she is to painful and getting more frail and less verbal. Spoke with daughter at bedside and called her son in. Also found she has a polst the is no cpr. Pt airway more precarious. Son and daughter agreed to comfort care. Pt medicated, Concern she may not be able to maintain her airway much longer. will update RT.
--- NOTE | 2022-11-26 15:43 | NUR ---
PT EXPERIENCING INCREASED PAIN MEDICATED WITH DILAUDID 1MG WITH NO RELIEF. MD ORDERED OXYCODONE SR, UNABLE TO GIVE MEDICATION CANNOT BE CRUSHED AND PT CANNOT TAKE PO. DR. BAH NOTIFIED, ADDITIONAL PAIN MEDICATION REQUESTED. PALLIATIVE CARE RN CONTACTED FOR ASSISTANCE IN ESTABLISHING GOALS WITH PT/FAMILY, SON CALLED IN BY DAUGHTER WHO IS AT THE BEDSIDE. CONVERSATION WITH PALLIATIVE CARE RN, PT, SON AND DAUGHTER. PT NODS HEAD YES WHEN ASKED IF SHE IS READY FOR COMFORT CARE. SON AND DAUGHTER IN AGREEANCE THAT THEY WOULD LIKE TO FOCUS ON COMFORT PT HAS BEEN HAVING INCREASING AMOUNTS OF PAIN. MEDICATED WITH ATIVAN AND MORPHINE ORDERED, PT BECAME ITCHY AT IV SITE AFTER MORPHINE ADMINISTERED. PALLIATIVE CARE RN NOTIFIED AND NEW ORDERS FOR DILAUDID RECIEVED. MEDICATED ORDERED WITH GOOD RELIEF. RN TO CONTINUE TO MONITOR.
--- NOTE | 2022-11-26 16:50 | NUR ---
contacted phsycian about prn meds for her pain. review medication with pharmacisit since sublingual meds precarious. prn medication for pga tube with pharmacy consult.
--- NOTE | 2022-11-26 18:40 | NUR ---
END OF SHIFT SUMMARY PT ON COMFORT CARE, DAUGHTER AND SON AT BEDSIDE THROUGHOUT SHIFT, HOME FOR THE NIGHT BUT REQUEST TO BE CALLED WITH ANY CHANGES. PT RESTING COMFORTABLY AFTER DILAUDID AND ATIVAN. PUREWICK REPLACED AND GOWN CHANGED FOR COMFORT.
--- NOTE | 2022-11-26 19:52 | NUR ---
ASSUMPTION OF CARE PT IS RESTING COMFORTABLY WITH EYES CLOSED. NO S/S OF ACUTE DISTRESS NOTED AT TIME OF ASSUMPTION OF CARE. PT IS COMFORT CARE STATUS.
--- NOTE | 2022-11-27 06:45 | NUR ---
SHIFT SUMMERY PT HAS BEEN MEDICATED PER MD ORDERS FOR COMFORT THROUGHOUT THE NIGHT. SHE HAS HAD NO ACUTE EPISODES OF DISTRESS AND PAIN HAS BEEN MANAGED WELL W/MEDICATIONS GIVEN. SHE WILL ANSWER YES OR NO QUESTIONS W/HEAD NOD. SHE SHOOK HER HEAD NO TO PAIN MEDICATION AT THIS TIME.
--- NOTE | 2022-11-27 09:07 | NUR ---
PT MEDICATED AT SHIFT CHANGE FOR ANXIETY AND PAIN. AFTER MEDS PT HAS BEEN RESTING QUIETLY. WILL BE TRANSFERING TO MEDICAL FLOOR ROOM 327. REPORT GIVEN TO LUKAS.
--- NOTE | 2022-11-27 19:25 | NUR ---
SHIFT SUMMARY- PT TRANSFERED FROM ICU THIS MORNING. SHE SLEPT FOR THE DURATION OF THIS SHIFT. FAMILY AT BEDSIDE. ATROPINE ADMINISTERED FOR SECREATIONS. SUCTION SET UP. PAIN MEDICATIONS ADMINISTERED. BED IS IN THE LOW POSITON AND CALL LIGHT IS WITIN REACH.
== END 2022-11-28 06:27 | DRG 13 ==
LOC: ER 18:01 → ICUW 19:24 → MEDS 11-27 10:08
PROVIDERS: Hospitalist; Internal Medicine Critical Care Medicine; Student in an Organized Health Care Education/Training Program; Surgery; ADMIT Internal Medicine
PROC: 0B113F4 Bypass Trachea to Cutaneous with Tracheostomy Device, Percutaneous Approach (ICD-10-PCS; principal; 2022-11-24 14:45)
DX: C04.9 Malignant neoplasm of floor of mouth, unspecified (principal); Z93.1 Gastrostomy status; Z85.038 Personal history of other malignant neoplasm of large intestine; I10 Essential (primary) hypertension; Z86.718 Personal history of other venous thrombosis and embolism; Z86.711 Personal history of pulmonary embolism; G62.9 Polyneuropathy, unspecified; J44.9 Chronic obstructive pulmonary disease, unspecified; E78.00 Pure hypercholesterolemia, unspecified; Z87.891 Personal history of nicotine dependence; Z20.822 Contact with and (suspected) exposure to COVID-19; C10.9 Malignant neoplasm of oropharynx, unspecified; J98.8 Other specified respiratory disorders; G89.29 Other chronic pain; R45.1 Restlessness and agitation; Z51.5 Encounter for palliative care; K59.03 Drug induced constipation; T40.605A Adverse effect of unspecified narcotics, initial encounter; C32.1 Malignant neoplasm of supraglottis
CPT/HCPCS: 36415; 36600; 71045; 80048; 80053; 82803; 83735; 84100; 85025; 85730; 86850; 86900; 86901; 86923; 94644; 94760; 94762; 99291-25; A9270; J0360; J1170; J2001; J2060; J2250; J2270; J2405; J2704; J3010; J7030; J7060; J7120